=== PATIENT | male | born 1980 | race Caucasian/White ===

== ENCOUNTER 2017-12-27 11:55 | Emergency (ER) | payer OTHER ==
[~2017-12-27] VITALS: Ht 182.9 cm; Wt 127.0 kg
[~2017-12-27 11:55] MED LIST: FLOMAX PO; HYDROCODON-ACE1 EACH PO; NOHOMEMEDICATIONS; PERCOCET 5-3251 EACH PO
[2017-12-27] MEDS ORDERED: KEFLEX500 M1 PO (12:44)
[2017-12-27] MEDS ORDERED: TRAMADOL 50 MG50 MG PO (12:50)
[2017-12-27 13:17] VITALS: BP 168/107
== END 2017-12-27 13:19 | disposition home or self-care (01) ==
LOC: M.ERS 11:55
DX: S61.441A Puncture wound with foreign body of right hand, initial encounter (principal); I10 Essential (primary) hypertension; X58.XXXA Exposure to other specified factors, initial encounter; Y93.89 Activity, other specified; Y92.89 Other specified places as the place of occurrence of the external cause; Y99.8 Other external cause status